=== PATIENT | female | born 1990 | race Caucasian/White ===

== ENCOUNTER 2018-09-14 23:35 | Inpatient (IN) | payer MEDICAID, SELFPAY ==
[2018-09-14 23:33] LABS: ROM Internal Control Test YES-OK TO RESULT pt. (Internal QC)
[2018-09-14 23:34] LABS: ROM Patient Test POSITIVE (Negative)
[2018-09-15] MEDS: Lactated Ringers 1,000 ML 50 ML IV ×4 (00:05→08:27)
--- NOTE | 2018-09-15 00:11 | HP.PCM_ITS ---
History Date of Admission: 09/15/18 Final ANA MARIA: 09/22/18 Final ANA MARIA Source: US <20 weeks Gestational age: 39 Weeks and 0 Days History of this : This is a 28 year-old, G [id number] at 39 weeks gestation. Presents with spontaneous rupture membranes at approximately 8 PM on 09/14/2018. Patient reports fluid is clear. ROM plus was positive on labor and delivery at time of evaluation. Smoking Status: Current every day smoker Alcohol: None Substance Use Type: Amphetamines - +UDS 01/2018, Methamphetamine - states last used about one year ago Number of Fetus(es): 1 History Past Pregnancies: Past Pregnancies Delivery Date Name GA/Weeks Outcome Route Weight Gender Labor Length Anesthesia Delivery Location Provider FOB Labs: GBS neg, rub imm, syphilis non reactive, A+, HEPB neg, HIV neg, Physical Exam General: Alert, Oriented x3 Abdomen: Soft, Non Tender, Gravid Neurological: Cranial nerves II-XII grossly intact HEALTH SERVICES DIRECTOR: Normal external genitalia Estimated gestational size: Appropriate for gestational size Presentation: Cephalic Cervix Dilation (cm): 3 Station: -2 Effacement (%): 70 Assessment/Plan This is a 28 year-old, G [id number] at 39 weeks with spontaneous rupture membranes in early labor. Admit to labor and delivery Monitor heart rate and toco Anticipate normal spontaneous vaginal delivery Augment with Pitocin if indicated May have epidural if requested for pain
[2018-09-15 00:19] LABS: Absolute Lymphocyte Count 4.69 X10^3/uL (0.83-4.51); Basophil# 0.08 X10^3/uL; Basophil% 0.5 % (0-1); Eosinophil# 0.26 X10^3/uL; Eosinophils% 1.5 % (0-5); Hematocrit 36.1 % (37-47); Hemoglobin 12.4 g/dL (12.0-15.0); Lymphocyte # 4.69 X10^3/ul (4.0); Lymphocyte % 26.6 % (19-41); Mean Corp Hgb Conc 34.3 g/dL (32-36); Mean Corpuscular Hgb 32.3 pg (27.0-32.0); Mean Platelet Vol. 12.5 fl (6.2-12.0); Monocyte# 1.29 X10^3/uL; Monocyte% 7.3 % (0-10); NRBC Flagged by Analyzer 0 % (0-5); Neutrophil # 11.01 X10^3/uL (2.7-7.7); Neutrophil % 62.5 % (47-70); Platelet Count 172 K/mm3 (150-450); RBC Distribution Width CV 12.3 % (11.6-14.6); RBC Distribution Width SD 42.4 fl (35.1-43.9); Red Blood Count 3.84 M/mm3 (4.2-5.4); White Blood Count 17.6 K/mm3 (4.4-11.0)
[2018-09-15 00:21] VITALS: BMI 34.4
[2018-09-15 02:01] LABS: Amphetamine Urine VISTA NEGATIVE (<1000 ng/mL); Barbiturate Urine VISTA NEGATIVE (< 200 ng/mL); Benzodiazepine Urine VISTA NEGATIVE (< 200 ng/mL); Cocaine Urine VISTA NEGATIVE (< 300 ng/mL); Ecstacy Urine VISTA NEGATIVE (< 500 ng/mL); Methadone Urine VISTA NEGATIVE (< 300 ng/mL); PCP Urine VISTA NEGATIVE (< 25 ng/mL); THC Urine VISTA NEGATIVE (< 50 ng/mL); Vista UDS pH Range 6
[2018-09-15] MEDS: fentaNYL-bupivacaine (epidural) 100 ML BAG EPIDURAL ×2 (04:35→08:57)
[2018-09-15] MEDS: Oxytocin 30 units/NS 500 ml 30 UNITS/500 ML IV.SOLN IV (06:29)
[2018-09-15] MEDS: Oxytocin 30 units/NS 500 ml 30 UNITS/500 ML IV.SOLN 334 UNITS IV (09:25)
--- NOTE | 2018-09-15 09:31 | PCM.OPRPT ---
Vaginal Delivery Maternal Presentation: Active Labor, Spontaneous Rupture of Membranes Amniotic Membrane Rupture Type: Spontaneous at home Amniotic Fluid Description: Clear Final ANAM ARIA: 09/22/18 Gestational age: 39 Weeks and 0 Days Date of Procedure: 09/15/18 Pre-Operative Diagnosis: Gestation, spontaneous rupture of membranes, labor Post-Operative Diagnosis: Same, live male Surgery/ Procedure Performed: Spontaneous Vaginal Delivery Type of Anesthesia: Epidural Description of Procedure: of a live male born without complication. Good maternal effort. Delayed cord clamping performed. was vigorous at time of delivery. Presentation: Vertex Placental Delivery Description: Spontaneous Placenta Disposition: [facility] Cord Vessel Description: 3 Vessels Cord Entanglement: None Drain: Calvillo to straight drain Estimated Blood Loss: 250 A gender: Male (1 minute): 9 (5 minute): 9 Episiotomy Description: None Laceration: None Medications given after delivery: IV Pitocin Complications: None
[2018-09-15] MEDS: Oxytocin 30 units/NS 500 ml 30 UNITS/500 ML IV.SOLN 167 UNITS IV (09:55)
[2018-09-15] MEDS: Ondansetron 4 MG/2 ML Vial IV (10:02)
[2018-09-15] MEDS: Acetaminophen 500 MG Tablet 1000 MG PO ×2 (13:46→21:45)
--- NOTE | 2018-09-15 13:47 | CASEMGMT ---
SW received referral due to history of drug use and [facility] Services involvement. As per physician, MOB has an open case with [facility] due to drug possession in June, however the case is to be closed soon as per MOB. Baby was just born today, SW will follow up w/MOB tomorrow. SW called [facility] in [facility], spoke w/Karlee and confirmed MOB has an open case, pt's case operator is Miracle Hankins([phone]). [facility] is to call this SW back to let this SW know if they need to see MOB while here. SW will call Miracle tomorrow once SW sees MOB. LAURI Osorio
[2018-09-15 13:48] VITALS: BP 117/70; PULSE 73; RESP 18; TEMP 36.7
[2018-09-15 17:14] VITALS: BP 107/57; PULSE 54; RESP 18; TEMP 36.3
[2018-09-15] MEDS: Ibuprofen 600 MG Tablet PO (17:39)
[2018-09-15 19:49] VITALS: BP 124/66; PULSE 62; RESP 18; TEMP 36.6
[2018-09-16] VITALS: BP 86/47; PULSE 48; RESP 20; TEMP 36.2
[2018-09-16 04:49] VITALS: BP 93/41; PULSE 45; RESP 16; TEMP 36.2
--- NOTE | 2018-09-16 07:15 | DCINST_ITS ---
Discharge Diet: No Restrictions Discharge Activity: Return to Normal Activity, May not drive while taking narcotic pain medications., May Shower May resume sexual activity in: 4-6 weeks Additional Activity Instructions:: Nothing in the vagina for 4-6 weeks. You may return to work/school in 6 weeks. Call your doctor if your incision/area has: Continuous Slow Oozing, Sudden Increased Bleeding, Increased Pain/ Swelling, Increased Redness, Foul Smelling Discharge Additional Instructions: If you experience any of the following, contact your healthcare provider. * Bleeding that soaks a pad every hour for 2 hours * Fever 100.4 or higher * Unrelieved incision or abdominal pain * Swelling, redness, discharge or bleeding from your incision or episiotomy site * Your incision begins to separate * Problems urinating (including inability to urinate or burning while urinating). * Visual changes * Severe headache * Flu-like symptoms * Pain or redness in one of both of your breasts * Pain, warmth, tenderness or swelling in your legs, especially the calf area * Frequent nausea and vomiting * Symptoms of depression or anxiety If you experience any of the following, call 911 or go to the nearest Emergency Room. * Chest pain * Problems breathing * Seizure activity * Partial or complete paralysis of a body part, slurred speech, weakness or drooping of the face, or a sudden inability to walk or hold your balance Allergies/Adverse Reactions: Allergies No Known Allergies Allergy (Verified 09/15/18 01:38) Medications to take at Discharge Pnv No.95/Ferrous Fum/Folic AC [ Formula Tablet] 1 tab PO DAILY 09/15/18 Ibuprofen [Motrin] 600 mg PO Q6H PRN #60 tab 09/16/18 The following prescriptions were given: Ibuprofen [Motrin] 600 mg PO Q6H PRN #60 tab PRN Reason: Pain Transmission Status: [id number] Please Follow Up With: Angelika Garcia MD - [phone] When: Call to make an appointment in our office in 1-2 in 6 weeks or as needed. Primary Care Physician: ZACH CISNEROS [Other] Test Results: Test results from this visit will be discussed in further detail at your follow- up appointment, if applicable.
--- NOTE | 2018-09-16 07:15 | PCM.DCVAG ---
Discharge Diet: No Restrictions Discharge Activity: Return to Normal Activity, May not drive while taking narcotic pain medications., May Shower May resume sexual activity in: 4-6 weeks Additional Activity Instructions:: Nothing in the vagina for 4-6 weeks. You may return to work/school in 6 weeks. Call your doctor if your incision/area has: Continuous Slow Oozing, Sudden Increased Bleeding, Increased Pain/ Swelling, Increased Redness, Foul Smelling Discharge Additional Instructions: If you experience any of the following, contact your healthcare provider. Bleeding that soaks a pad every hour for 2 hours Fever 100.4 or higher Unrelieved incision or abdominal pain Swelling, redness, discharge or bleeding from your incision or episiotomy site Your incision begins to separate Problems urinating (including inability to urinate or burning while urinating). Visual changes Severe headache Flu-like symptoms Pain or redness in one of both of your breasts Pain, warmth, tenderness or swelling in your legs, especially the calf area Frequent nausea and vomiting Symptoms of depression or anxiety If you experience any of the following, call 911 or go to the nearest Emergency Room. Chest pain Problems breathing Seizure activity Partial or complete paralysis of a body part, slurred speech, weakness or drooping of the face, or a sudden inability to walk or hold your balance Allergies/Adverse Reactions: Allergies No Known Allergies Allergy (Verified 09/15/18 01:38) Medications to take at Discharge Pnv No.95/Ferrous Fum/Folic AC [ Formula Tablet] 1 tab PO DAILY 09/15/18 Ibuprofen [Motrin] 600 mg PO Q6H PRN #60 tab 09/16/18 The following prescriptions were given: Ibuprofen [Motrin] 600 mg PO Q6H PRN #60 tab PRN Reason: Pain Transmission Status: [id number] Please Follow Up With: Angelika Garcia MD - [phone] When: Call to make an appointment in our office in 1-2 in 6 weeks or as needed. Primary Care Physician: ZACH CISNEROS [Other] Test Results: Test results from this visit will be discussed in further detail at your follow-up appointment, if applicable.
--- NOTE | 2018-09-16 07:16 | PCM.PN.OB ---
Subjective: Pain well controlled. Average lochia. - Physical Exam General: Alert, Cooperative, No apparent distress Vital Signs Temp Pulse Resp BP 97.1 F L 45 L 16 93/41 L 09/16/18 04:49 09/16/18 04:49 09/16/18 04:49 09/16/18 04:49 Oxygen Delivery Method Room Air Weight: 85.5 kg Body Mass Index (BMI) 34.4 Intake and Output for Last 24 Hours 09/14/18 09/15/18 09/16/18 23:59 23:59 23:59 Output Total 1300 / 1300 Balance -1300 / -1300 Medical Necessity - Tobacco Use Smoking Status: Light Smoker (<10/day) Assessment/Plan day #1 status post vaginal delivery. Infant is bottlefeeding and doing well. Patient is doing well. Likely home later today with routine instructions.
[2018-09-16 09:20] VITALS: BP 103/76; PULSE 83; RESP 16; TEMP 36.6
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
[2018-09-16] MEDS: Ibuprofen 600 MG Tablet PO ×2 (12:04→21:33)
[2018-09-16 14:00] VITALS: BP 103/67; PULSE 80; RESP 16; TEMP 36.2
[2018-09-16 20:00] VITALS: BP 92/60; PULSE 52; RESP 17; TEMP 36.1
[2018-09-17 01:20] VITALS: BP 96/50; PULSE 52; RESP 17; TEMP 36.1
[2018-09-17 07:24] VITALS: BP 123/70; PULSE 80; RESP 17; TEMP 36.7; O2SAT 99
[2018-09-17 08:20] VITALS: BP 98/56; PULSE 79; RESP 17; TEMP 36.7; O2SAT 99
--- NOTE | 2018-09-17 09:36 | PCM.PN.OB ---
Subjective: No complaints - Physical Exam General: Alert, Oriented x3 Abdomen: Soft, Non Tender, Non-Distended - ff mid & below umb Extremities: No Calf Tenderness Vital Signs Temp Pulse Resp BP Pulse Ox 98.0 F 79 17 98/56 L 99 09/17/18 08:20 09/17/18 08:20 09/17/18 08:20 09/17/18 08:20 09/17/18 08:20 Oxygen Delivery Method Room Air Weight: 188 lb 7.924 oz Body Mass Index (BMI) 34.4 Intake and Output for Last 24 Hours 09/15/18 09/16/18 09/17/18 23:59 23:59 23:59 Output Total 1899 / 1899 Balance -1899 / -1899 Medical Necessity - Tobacco Use Smoking Status: Light Smoker (<10/day) Assessment/Plan PPD#2 D/c home
[2018-09-17 13:40] VITALS: BP 121/78; PULSE 70; RESP 17; TEMP 36.7; O2SAT 98
--- NOTE | 2018-09-21 16:51 | NURSING ---
Doing well , working with wic to try to get a pump. doing combination of breast feeding and bottles. She really love Linda Nelson and Shanthi on days.
== END 2018-09-17 13:40 | disposition home or self-care (01) | DRG 560 ==
LOC: WPOUT 23:42
PROVIDERS: Admitting Provider Obstetrics & Gynecology; Referring Provider Obstetrics & Gynecology; Visit Provider Obstetrics & Gynecology
DX: O99.334 Smoking (tobacco) complicating childbirth (principal); F17.200 Nicotine dependence, unspecified, uncomplicated; Z37.0 Single live birth; Z3A.39 39 weeks gestation of pregnancy
CPT/HCPCS: 59025; 59050; 80307; 84112; 85025; 86850; 86900; 99218; J7120; G0378; J2405

== ENCOUNTER 2018-10-20 09:40 | Day surgery (SDC) | payer MEDICAID, SELFPAY ==
--- NOTE | 2018-10-12 08:11 | HP.PCM_ITS ---
History and Physical Date of Admission: 10/20/18 Angelika Britt Physician DRIVER'S LICENSE REVIEWING OFFICER H&P Signed Encounter Date: 10/11/2018 Expand All Collapse All Hide copied text Elliot for details Tori Avila is a 28 year old female who presents for sterilization consult. Patient has 3 children all born . Patient would like to proceed with a laparoscopic bilateral salpingectomy. Patient does not desire any future fertility. Patient would also like her Pap collected at that time she declines a pelvic exam right now due to previous trauma. She denies any chest pain, shortness of breath, dizziness. ? PAST?MEDICAL?HISTORY PAST MEDICAL HISTORY Diagnosis Date ? Anxiety ? ? Gestational diabetes mellitus, antepartum 2015 ? Obesity ? ? PAST?SURGICAL?HISTORY PAST SURGICAL HISTORY Procedure Laterality Date ? TONSILLECTOMY HX ? age 4 ? FAMILY?HISTORY FAMILY HISTORY Problem Relation Age of Onset ? No Known Problems Mother ? ? No Known Problems Father ? ? Heart Maternal Grandmother ? ? Pacemaker ? Breast Cancer Sister ? ? SOCIAL?HISTORY Social History Socioeconomic History Marital status: Single Spouse name: Not on file Number of children: 2 Years of education: Not on file Highest education level: Not on file Occupational History Occupation: Unemployed Social Needs Financial resource strain: Not on file Food insecurity: Worry: Not on file Inability: Not on file Transportation needs: Medical: Not on file Non-medical: Not on file Tobacco Use Smoking status: Current Every Day Smoker Packs/day: 0.50 Years: 10.00 Pack years: 5 Types: Cigarettes Smokeless tobacco: Never Used Substance and Sexual Activity Alcohol use: No Drug use: No Sexual activity: Yes control/protection: None Lifestyle Physical activity: Days per week: Not on file Minutes per session: Not on file Stress: Not on file Relationships Social connections: Talks on phone: Not on file Gets together: Not on file Attends jain service: Not on file Active member of club or organization: Not on file Attends meetings of clubs or organizations: Not on file Relationship status: Not on file Intimate partner violence: Fear of current or ex partner: Not on file Emotionally abused: Not on file Physically abused: Not on file Forced sexual activity: Not on file Other Topics Concerns: Not on file Social History Narrative Not on file ? CURRENT?MEDICATIONS ? Current Outpatient Medications: Kiympygx-Pf-Cop-Fe-FA ( VITAMIN) tab Take 1 tablet by mouth once daily. ibuprofen (MOTRIN) 600 mg tablet Take 1 tablet by mouth every 6 hours as needed. FOR PAIN. simethicone, chewable (MYLICON) 80 mg chewable tablet Take 1 tablet by mouth every 6 hours as needed. fluconazole (DIFLUCAN) 200 mg tablet Take two tablets PO on day one then one tablet daily for 14 days omeprazole (PRILOSEC) 20 mg capsule TAKE 1 CAPSULE BY MOUTH EVERY DAY (Patient not taking: Reported on 10/11/2018) ? No current facility-administered medications for this visit. Allergies As of Date: 10/11/2018 (No Known Allergies) Fully Assessed 10/11/2018 ? ? REVIEW OF SYSTEMS Abdomen: No abdominal pain, nausea, vomiting, diarrhea, or constipation. Bladder: No dysuria, gross hematuria, urinary frequency, urinary urgency, or incontinence. Breast: No breast lumps, nipple d/c, overlying skin changes, redness or skin retraction. Expanded ROS: GENERAL: Negative for malaise, fever Allergies and current medication updated:Yes ? EXAM: BP 106/72 Wt 171 lb (77.6kg) ? GENERAL: pleasant, female in no apparent distress HEENT: Normocephalic, atraumatic, mucus membranes moist and no lesions NECK: Supple, full range of motion, no adenopathy and thyroid normal DERMATOLOGY: Normal, without lesions, non-icteric and non-hirsute BREAST: soft, non-tender, symmetric, no dominant mass, normal nipple-areolar complex, no lymphadenopathy and no nipple discharge ABDOMEN: soft, non-tender and no masses PELVIC: declined BIMANUAL: declined NEURO: alert and oriented x3,exam grossly non-focal EXTREMITIES: normal ? ASSESSMENT AND PLAN: Encounter Diagnosis ? ? ICD-10-CM ? 1. Encounter for screening for malignant neoplasm of cervix Z12.4 CANCELED: PAP FLUID CERVICAL SCREENING 2. care and examination Z39.2 ? ? 3. Pt has been counseled on risks/benefits and alternatives of surgery including but not limited to anesthesia, bleeding, infection, injury to pelvic structures including bowel, bladder, ureters and vessels. Pt wishes to proceed with surgery at this time. 4. Pt is scheduled for laparoscopic bilateral salpingectomy with Pap collection to be performed on October 20, 2018 [facility]. All preoperative instructions are reviewed. Postoperative pain medication was given. ? Angelika Neyhart-Britt, MD ?3:49 PM Office Visit on 10/11/2018
[2018-10-20] VITALS (8 sets, daily range): BP systolic 99–106; BP diastolic 61–77; PULSE 50–67; RESP 14–16; TEMP 36.6–36.8; O2SAT 97–100; BMI 31.5
--- NOTE | 2018-10-20 | FALS_PTH ---
PATIENT: AMANDA BOLAÑOS [place]: [facility] U#:[id number] AGE/SX: 28/ ROOM: RE10/20/[address]: Dr. Angelika Garcia, MDDOB: 1990 BED: DIS: 10/20/2018 SPEC #: [id number] RECD: 10/20/18 14:11 STATUS: PRATEEK CARLINE #: [id number] LUZMARIA: 10/20/18 00:[address]: Angelika Garcia DEPT: SURGICAL PATHOLOGY RECD BY: Alton Phan ENTERED: 10/20/18 14:11 SP TYPE: FALL TUBES OTHR DR: Out of [facility] Doctor Tissues: Fallopian tube Procedures: Surgery Specimen Level II HEADER OPERATION: Laparoscopic, salpingectomy, Pap test PRE-OP DIAGNOSIS: Desires sterilization, screening for malignant neoplasm of cervix TISSUE SUBMITTED: Bilateral fallopian tubes MICROSCOPIC DIAGNOSIS Bilateral fallopian tubes, salpingectomy: Bilateral fallopian tubes including fimbrial ends, no pathologic diagnosis. ALESIA:trina 10/21/18 MICROSCOPIC DESCRIPTION Slides are reviewed. GROSS DESCRIPTION Received is one container labeled with the patient's name and designated bilateral fallopian tubes. The specimen consists of bilateral fallopian tubes including fimbrial ends with the right identified with a suture. The fallopian tubes measure in average 4.5 cm in length and 0.5 cm in average diameter. Bellows Assembler sections are submitted in two cassettes as follows: 1 - right fallopian tube, 2 - left fallopian tube. /AM:trina 10/20/18 TC: 4 CPT: 50237 x2
[2018-10-20 10:02] LABS: Internal QC Validated? YES +Cl - CLEAR BKGD; Pregnancy, Urine Negative Negative
[2018-10-20 10:03] LABS: Hematocrit 41.8 % (37-47); Hemoglobin 13.3 g/dL (12.0-15.0); Mean Corp Hgb Conc 31.8 g/dL (32-36); Mean Corpuscular Hgb 31.1 pg (27.0-32.0); Mean Corpuscular Volume 97.7 fL (81-99); Mean Platelet Vol. 10.3 fl (6.2-12.0); Platelet Count 236 K/mm3 (150-450); RBC Distribution Width CV 12.4 % (11.6-14.6); RBC Distribution Width SD 44.5 fl (35.1-43.9); Red Blood Count 4.28 M/mm3 (4.2-5.4); White Blood Count 8.8 K/mm3 (4.4-11.0)
[2018-10-20] MEDS: Lactated Ringers 1,000 ML 150 ML IV ×2 (10:35→11:31)
--- NOTE | 2018-10-20 12:54 | DCINST_ITS ---
Discharge Diet: No Restrictions, - - Increase fluid intake for 48 hours. Discharge Activity: Return to Normal Activity, May Drive - when you are no longer taking narcotic pain medications., May Shower, May Take a Tub Bath - in 7 days., - - Ambulate often the next week after surgery. Lifting Restrictions: 25 Additional Activity Instructions:: Nothing in the vagina for the next 5 days. Call your doctor if your incision/area has: Continuous Slow Oozing, Sudden Increased Bleeding, Increased Pain/ Swelling, Increased Redness, Foul Smelling Discharge, Swelling at the incision site Call your doctor if you observe: Fever of 101 or Higher, Using more than one pad per hour, Uncontrolled pain Cleanse incision/area with: - - You have skin glue on your incisions do not pick it off. You may shower let the soap and water run over it dab dry. Allergies/Adverse Reactions: Allergies No Known Allergies Allergy (Verified 10/13/18 13:05) Medications to take at Discharge Ibuprofen [Motrin] 600 mg PO Q6H PRN #60 tab 09/16/18 Fluconazole [Diflucan] 200 mg PO DAILY 10/13/18 Primary Care Physician: ZACH CISNEROS [Other] Test Results: Test results from this visit will be discussed in further detail at your follow- up appointment, if applicable. Please Follow Up With: Angelika Garcia MD When: as scheduled
--- NOTE | 2018-10-20 12:55 | OP.PCM_ITS ---
Report of Operation Date of Procedure: 10/20/18 Pre-Operative Diagnosis: Screening for malignant neoplasm of the cervix, desires sterilization Post-Operative Diagnosis: same Surgery/Procedure Performed:: PAP collection, Laparoscopic bilateral salpingectomy Description of Surgical Findings:: Normal ovaries, both fimbriated ends of tubes appear to be clubbed. clinic licensed practical nurse: Franklin Galaviz clinic licensed practical nurse: MARLYN LARRY Type of Anesthesia:: General Special Medications: 0.5% marcaine Specimen's removed: Biltaeral fallopian tubes Drains: none Estimated Blood Loss (mL): 5 Fluids Replaced: 1000 Description of Procedure: After informed consent was obtained patient was taken to the operating room she was placed in supine position she was given anesthesia. She was then placed in the yellow [facility] stirrups and she was prepped and draped in normal sterile fashion. Bladder was drained prior to the start of procedure approximately 100cc of clear yellow urine was expelled. At this time attention was turned to the vaginal portion where weighted speculum placed at posterior fornix vagina- pap collected- single-tooth tenaculum was used to gently grasp the internal the cervix. uterus was gently sounded to approximately 8cm- however perforation anticipated. Uterine manipulator was placed without difficulty. Legs then placed in parallel with the abdomen the tenaculum and the weighted speculum were removed. 2 towel clamps were placed in umbilicus. After Marcaine was injected in umbilicus a small incision was made and a 5 mm trocar was placed under direct visualization. CO2 gas was used to insufflate the intra-abdominal cavity. Upon inspection no gross abnormalities uterus- tiny perforation noted anterior, no active bleeding tubes with clubbing at fimbria and ovaries appeared to be normal. At this time then the LLQ aned RLQ port were placed again Marcaine was injected small incision was made a knife and the 5 mm trocar was placed. At this time then tubes were traced back to the fimbriated ends. Ligasure was used to coagulate and ligate along mesosalpynx bilaterally until tubes removed completely. Good hemostasis was appreciated. At this time procedure was deemed complete successful. The gas was desufflated on from the intra-abdominal cavity. The trochars were removed. Skin was closed using 4-0 Monocryl in a subcutaneous fashion. Dermabond glue was placed. Instrument lap and needle counts were correct ?2. The uterine manipulator was removed. Vaginal sweep was performed it was negative. There were no complications anticipated normal postoperative course for this patient. Grafts/Implants Used: none - Complications none - Admit VTE Documentation VTE Present on Admission: Yes VTE Mechan Device Prophylaxis: SCD's VTE Pharm Prophylaxis ordered?: No
[2018-10-27 12:59] LABS: HPV Reflexed? NOT INDICATED
== END 2018-10-20 14:53 | disposition home or self-care (01) ==
LOC: SDC 09:42 → AC 09:44
PROVIDERS: Referring Provider Obstetrics & Gynecology; Visit Provider Obstetrics & Gynecology
PROC: (CPT 58661; principal; 2018-10-20 11:05)
DX: Z30.2 Encounter for sterilization (principal); F17.210 Nicotine dependence, cigarettes, uncomplicated; Z95.0 Presence of cardiac pacemaker; Z80.3 Family history of malignant neoplasm of breast; Z79.899 Other long term (current) drug therapy
CPT/HCPCS: 58661; 36415; 81025; 85027; 88175; 88302; J7120; G0145; J2405

== ENCOUNTER 2020-08-09 00:04 | Emergency (ER) | payer MEDICAID, SELFPAY ==
[2018-10-20 10:21] VITALS: BMI 31.5
[2020-08-09 00:05] VITALS: BP 143/97; PULSE 76; RESP 16; TEMP 36; O2SAT 98; BMI 39.0
--- NOTE | 2020-08-09 00:21 | EDS_ITS ---
HPI History of Present Illness Chief Complaint: Abd Pain Narrative Narrative: Patient presenting with epigastric pain. She states she thinks she had a bug about a week ago and she vomited once and had diarrhea which resolved. She has this intermittent epigastric pain that comes and goes. It does not appear to be associated with food. She states when she gets stressed out though it hurts worse. She has no history of stomach ulcers that she knows of. She is not had fever. She denies nausea and vomiting currently. She has no diarrhea or constipation. Other than pain in epigastric region she feels well. She states that she drinks occasionally but is not an everyday drinker. She has no history of pancreatitis. [facility] Medical History Asthma PTSD (post-traumatic stress disorder) Home Medications albuterol sulfate [ProAir HFA] 1 inh INHALATION Q6H PRN #8.5 g 08/09/20 [Rx Last Taken Unknown] amoxicillin-pot clavulanate [Augmentin] 1 tab PO BID #20 tab 08/09/20 [Rx Last Taken Unknown] omeprazole 20 mg PO DAILY #30 capsule 08/09/20 [Rx Last Taken Unknown] sertraline 125 mg PO DAILY 08/09/20 [History Last Taken Unknown] Allergy/AdvReac Type Severity Reaction Status Date / Time No Known Allergies Allergy Verified 08/09/20 00:10 Social History Smoking Status: Current every day smoker tobacco type: cigarettes ROS ROS ED Constitutional Constitutional ED: Denies chills or fever(s) Eyes Eyes: Denies blurry vision or change in vision ENT ENT ED: Denies ear pain, rhinorrhea or sore throat Cardiovascular Cardiovascular: Denies chest pain or palpitations Respiratory/Chest Respiratory/Chest: Denies cough or dyspnea Gastrointestinal Gastrointestinal: Reports abdominal pain, diarrhea and nausea Musculoskeletal Musculoskeletal: Denies arthralgias or myalgias Integumentary Denies abscess or rash Neurologic Neurologic: Denies headache(s) or weakness Psychiatric Psychiatric: Denies anxiety or depression Endocrine Endocrinology: Denies polydipsia or polyuria EXAM Physical Exam Const Vital Signs: 08/09/20 00:05 Temperature 96.8 F L Temperature Source Temporal Pulse Rate 76 Respiratory Rate 16 Blood Pressure 143/97 H Blood Pressure Mean 112 Pulse Ox 98 Oxygen Delivery Method Room Air Positive well nourished General Appearance ED: NAD HEENT Reports moist mucous membranes Negative for trauma Teeth and Gingiva: caries, poor dentition and teeth discoloration Throat: posterior oropharynx normal and other Other Details: Tooth #4 tooth #5 have some white dental material placed over the area of pain. There is percussion tenderness here. The gingiva is normal. Eyes PERRL and EOMs intact bilaterally General Eye ED: Negative for scleral icterus Resp normal respiratory effort and clear to auscultation bilaterally Cardio regular rate and regular rhythm GI non-distended GI Narrative: Mild epigastric tenderness Palpation: soft Extremity normal to inspection General Extremety ED: Negative for edema General Extremity: Negative for edema Neuro oriented x3 and CN's II-XII intact bilaterally Sensorium / Orientation: alert Psych mental status grossly normal Skin no rashes or lesions noted and no wounds MDM MDM MDM Narrative Medical decision making narrative: Patient is seen and evaluated for epigastric pain. I did give the patient morphine and Zofran and checked lab work. She does not have a leukocytosis. Her H&H are stable. Renal function and davis ctrolytes are normal. LFTs are normal. Lipase is negative. Urinalysis is contaminated and they will not treat her for UTI given that she has no symptoms. Patient then had complaint of dental pain in the right upper teeth #4 #5. I cannot actually visualize him fully given that she has put some sort of cement on them however there is some percussion tenderness here. She requests an antibiotic. She does have multiple dental caries and she has a dental appointment upcoming. I will start her on Augmentin for this. Patient also has complaint that she has no primary care physician and requests an albuterol inhaler. I did provide a prescription for this. For her initial complaint I will start her on omeprazole. She is counseled on foods to avoid. She is given return precautions. Impression: 1. Epigastric pain 2. Dental infection 3. Medication refill Lab Data Labs: Laboratory Results - last 24 hr 08/09/20 08/09/20 08/09/20 00:20 00:20 00:28 WBC 10.7 RBC 3.86 L Hgb 12.4 Hct 38.0 MCV 98.4 MCH 32.1 H MCHC 32.6 RDW Std Deviation 46.5 H RDW Coeff of Daniela 13.0 Plt Count 310 MPV 10.2 Immature Gran % (Auto) 0.800 Neut % (Auto) 44.1 L Lymph % (Auto) 40.3 Blount % (Auto) 8.3 Eos % (Auto) 5.9 H Baso % (Auto) 0.6 Absolute Neuts (auto) 4.7 Absolute Lymphs (auto) 4.29 Nucleated RBC % 0 Sodium 139 Potassium 3.9 Chloride 104 Carbon Dioxide 31.0 Anion Gap 4 L BUN 16 Creatinine 0.68 Estim Creat Clear Calc 94.81 Est GFR (MDRD) Af Amer 131 Est GFR (MDRD) Non-Af 108 BUN/Creatinine Ratio 23.7 H Glucose 90 Calcium 8.7 Total Bilirubin 0.20 AST 18 ALT 23 Alkaline Phosphatase 52 Total Protein 7.0 Albumin 3.4 Globulin 3.6 Albumin/Globulin Ratio 0.9 Lipase 181 Urine Color Yellow Urine Clarity Clear Urine pH 7.0 Ur Specific [place] 1.010 Urine Protein Negative Urine Glucose (UA) Normal Urine Ketones Negative Urine Occult Blood Negative Urine Nitrite Negative Urine Bilirubin Negative Urine Urobilinogen Normal Ur Leukocyte Esterase 100 H Urine RBC 0 SEEN Urine WBC 5-10 SEEN Ur Squamous Epith Cells 10-25 SEEN Amorphous Sediment RARE Urine Bacteria 2+ Urine Mucus 0 SEEN Discharge Plan Triage Chief Complaint: Abd Pain ED Provider: Darren Whiteside Dx/Rx/DC Orders Instructions: ED Dental Cavity, ED PEPTIC ULCER vs GASTRITIS Prescriptions: New omeprazole 20 mg capsule,delayed release(DR/EC) 20 mg PO DAILY Qty: 30 RF: 0 albuterol sulfate [ProAir HFA] 90 mcg/actuation HFA aerosol inhaler 1 inh inhalation Q6H PRN (Reason: shortness of breath or wheezing) Qty: 8.5 RF: 0 amoxicillin-pot clavulanate [Augmentin] 875-125 mg tablet 1 tab PO BID Qty: 20 RF: 0 No Action sertraline 50 mg tablet 125 mg PO DAILY RF: 0 Primary Care Provider: Care Physician,No Primary Referrals: Boris Singh III, MD [STAFF PHYSICIAN] - As soon as possible Care Physician,No Primary [Primary Care Provider] - Disposition Disposition: Home, self care
[2020-08-09 00:28] LABS: Absolute Lymphocyte Count 4.29 X10^3/uL (0.83-4.51); Absolute Neutrophil Count 4.7 X10^3/uL (2.0-7.7); Basophil# 0.06 X10^3/uL; Basophil% 0.6 % (0-1); Eosinophil# 0.63 X10^3/uL; Eosinophils% 5.9 % (0-5); Hemoglobin 12.4 g/dL (12.0-15.0); Lymphocyte # 4.29 X10^3/ul (0.83-4.51); Lymphocyte % 40.3 % (19-41); Mean Corp Hgb Conc 32.6 g/dL (32-36); Mean Corpuscular Hgb 32.1 pg (27.0-32.0); Mean Corpuscular Volume 98.4 fL (81-99); Mean Platelet Vol. 10.2 fl (6.2-12.0); Monocyte# 0.88 X10^3/uL; Monocyte% 8.3 % (0-10); NRBC Flagged by Analyzer 0 % (0-5); Neutrophil % 44.1 % (47-70); Platelet Count 310 K/mm3 (150-450); RBC Distribution Width SD 46.5 fl (35.1-43.9); Red Blood Count 3.86 M/mm3 (4.2-5.4); White Blood Count 10.7 K/mm3 (4.4-11.0)
[2020-08-09] MEDS: Morphine 4 MG/ML Syringe IV (00:32)
[2020-08-09] MEDS: Ondansetron 4 MG/2 ML Vial IV (00:32)
[2020-08-09 00:33] LABS: Color, Urine Yellow (Yellow); Glucose, Dipstick Normal (Normal); Ketone-Dipstick Negative (Negative); Leukocyte Esterase-Dipstick 100 /ul (Negative); Mucous, Urine 0 SEEN /hpf (<or=2+); Nitrite-Dipstick Negative (Negative); Occult Blood-Urine Negative /ul (Negative); Protein-Dipstick Negative (Negative); Red Blood Cells-Urine 0 SEEN /hpf (0-5); Urine Bilirubin Dipstick Negative (Negative); Urine Clarity Clear (Clear); Urine Urobilinogen Normal (Normal)
[2020-08-09 00:40] LABS: Amorphous Sediment RARE; Bacteria 2+ /hpf (None Seen); Squamous Epithelial Cells - UA 10-25 SEEN /hpf (5-10); White Blood Cells 5-10 SEEN /hpf (0-5)
[2020-08-09 00:47] LABS: ALB/GLOB Ratio 0.9 RATIO (0.9-2.4); AST(SGOT) 18 U/L (15-37); Alanine Aminotransfer ALT/SGPT 23 U/L (13-56); Albumin, Serum 3.4 g/dL (3.2-5.0); Alkaline Phosphatase 52 U/L (45-117); Anion Gap 4 (5-15); BUN 16 mg/dL (7-18); BUN/Creat Ratio 23.7 RATIO (10-20); Calcium,Total 8.7 mg/dL (8.5-10.1); Chloride 104 mmol/L (98-107); Creatinine, Serum 0.68 mg/dL (0.55-1.02); EST Glomerular Filtration Rate 108 mL/min (>60); Est Glom Filt Rate - Afr Amer 131 mL/min (>60); Estimated Creatinine Clearance 94.81 ml/min; Globulin 3.6 g/dL (2.2-4.2); Glucose 90 mg/dL (74-106); Lipase 181 U/L (73-393); Potassium 3.9 mmol/L (3.5-5.1); Sodium Level 139 mmol/L (136-145)
[2020-08-09] MEDS: Mag Hydrox/Al Hydrox/Simeth 30 ML UDC PO (01:25)
[2020-08-09] MEDS: Amox/Clavulanate 875 MG Tablet PO (01:25)
== END 2020-08-09 01:30 | disposition home or self-care (01) ==
PROVIDERS: Emergency Provider Student in an Organized Health Care Education/Training Program
DX: R10.13 Epigastric pain (principal); K04.7 Periapical abscess without sinus; Z76.0 Encounter for issue of repeat prescription; F17.210 Nicotine dependence, cigarettes, uncomplicated; F43.10 Post-traumatic stress disorder, unspecified; J45.909 Unspecified asthma, uncomplicated
CPT/HCPCS: 80053; 81001; 83690; 85025; 96374; 96375; 99284; A4216; J2405

== ENCOUNTER 2020-08-16 19:39 | Emergency (ER) | payer MEDICAID, SELFPAY ==
[2020-08-16 19:40] VITALS: BP 98/67; PULSE 106; RESP 26; TEMP 36.1; O2SAT 94; BMI 34.7
--- NOTE | 2020-08-16 20:24 | EDS_ITS ---
HPI History of Present Illness Chief Complaint: Allergic Reaction Narrative Narrative: 30-year-old female presenting with allergic reaction. She put medicated patch on her left shoulder and and started to have a diffuse skin rash, abdominal pain, felt a little short of breath, and complains of nausea. She took Benadryl prior to arrival and her symptoms have improved although she still has nausea and diffuse rash. Patient states she has never had an allergy to anything else. Patient states prior to this she was otherwise healthy. [facility] Medical History Asthma PTSD (post-traumatic stress disorder) Home Medications albuterol sulfate [ProAir HFA] 1 inh INHALATION Q6H PRN #8.5 g 08/09/20 [Rx Last Taken Unknown] amoxicillin-pot clavulanate [Augmentin] 1 tab PO BID #20 tab 08/09/20 [Rx Last Taken Unknown] omeprazole 20 mg PO DAILY #30 capsule 08/09/20 [Rx Last Taken Unknown] sertraline 125 mg PO DAILY 08/09/20 [History Last Taken Unknown] epinephrine [EpiPen 2-Aric] See Rx Instructions .ROUTE .COMPLEX PRN #2 ea 08/16/20 [Rx Last Taken Unknown] Allergy/AdvReac Type Severity Reaction Status Date / Time No Known Allergies Allergy Verified 08/16/20 19:40 Social History Smoking Status: Current every day smoker tobacco type: cigarettes ROS ROS ED Constitutional Constitutional ED: Denies chills or fever(s) Eyes Eyes: Denies blurry vision or change in vision ENT ENT ED: Denies ear pain or rhinorrhea Cardiovascular Cardiovascular: Denies chest pain or palpitations Respiratory/Chest Respiratory/Chest: Reports dyspnea; Denies cough or sputum Gastrointestinal Gastrointestinal: Reports abdominal pain and nausea Genitourinary Genitourinary ED: Denies dysuria or hematuria Musculoskeletal Musculoskeletal: Denies arthralgias or myalgias Integumentary Reports rash Neurologic Neurologic: Denies headache(s), paresthesias or weakness Psychiatric Psychiatric: Denies anxiety or depression EXAM Physical Exam Const Vital Signs: 08/16/20 19:40 08/16/20 20:45 08/16/20 21:45 Temperature 96.9 F L Temperature Source Temporal Pulse Rate 106 H 96 101 H Respiratory Rate 26 H 20 H 18 Blood Pressure 98/67 117/98 H 113/85 H Blood Pressure Mean 77 104 94 Pulse Ox 94 97 98 Oxygen Delivery Method Room Air Room Air Room Air 08/16/20 22:54 Temperature Temperature Source Pulse Rate 96 Respiratory Rate 16 Blood Pressure 101/70 Blood Pressure Mean Pulse Ox 98 Oxygen Delivery Method Positive well nourished General Appearance ED: NAD HEENT Reports moist mucous membranes HEENT Narrative: Tongue is normal. No sublingual edema. No posterior oropharyngeal erythema. No stridor. Negative for trauma Eyes PERRL and EOMs intact bilaterally Resp normal respiratory effort and clear to auscultation bilaterally Cardio regular rate and regular rhythm GI normal to inspection, nondistended, normoactive bowel sounds Extremity General Extremety ED: Negative for edema or tenderness General Extremity: Negative for edema Neuro oriented x3 Sensorium / Orientation: alert Psych mental status grossly normal Skin Skin Narrative: Patient has diffuse rash over entire body. MDM MDM MDM Narrative Medical decision making narrative: Patient presenting with allergic reaction she has diffuse rash and complains of nausea. She did have shortness of breath prior to arrival but took Benadryl. Given she still nauseous I did give her epinephrine, Solu-Medrol, Pepcid to the IV. She was monitored in the ED for 3 hours and at this point patient feels well and wants to be discharged home. She is given prescription for EpiPen. Impression: 1. Anaphylaxis Discharge Plan Triage Chief Complaint: Allergic Reaction ED Provider: Darren Whiteside Dx/Rx/DC Orders Instructions: ED Anaphylaxis Prescriptions: New epinephrine [EpiPen 2-Aric] 0.3 mg/0.3 mL auto-injector See Rx Instructions .ROUTE .COMPLEX PRN (Reason: anaphylaxis) Qty: 2 RF: 0 No Action sertraline 50 mg tablet 125 mg PO DAILY RF: 0 omeprazole 20 mg capsule,delayed release(DR/EC) 20 mg PO DAILY Qty: 30 RF: 0 albuterol sulfate [ProAir HFA] 90 mcg/actuation HFA aerosol inhaler 1 inh inhalation Q6H PRN (Reason: shortness of breath or wheezing) Qty: 8.5 RF: 0 amoxicillin-pot clavulanate [Augmentin] 875-125 mg tablet 1 tab PO BID Qty: 20 RF: 0 Primary Care Provider: Care Physician,No Primary Referrals: Care Physician,No Primary [Primary Care Provider] - Disposition Disposition: Home, Self Care Discharge Date/Time: 08/16/20 22:55
[2020-08-16] MEDS: MethylPREDNISolone 125 MG/2 ML Vial IV (20:36)
[2020-08-16] MEDS: Ondansetron 4 MG/2 ML Vial IV (20:36)
[2020-08-16] MEDS: Famotidine 200 MG/20 ML MDV 20 MG in 0.9% Normal Saline (Pres. free 8 ML 300 MG IV (20:42)
[2020-08-16 20:45] VITALS: BP 117/98; PULSE 96; RESP 20; O2SAT 97
[2020-08-16 21:45] VITALS: BP 113/85; PULSE 101; RESP 18; O2SAT 98
[2020-08-16 22:54] VITALS: BP 101/70; PULSE 96; RESP 16; O2SAT 98
== END 2020-08-16 22:55 | disposition home or self-care (01) ==
PROVIDERS: Emergency Provider Student in an Organized Health Care Education/Training Program
DX: T78.2XXA Anaphylactic shock, unspecified, initial encounter (principal); J45.909 Unspecified asthma, uncomplicated; F43.10 Post-traumatic stress disorder, unspecified; F17.210 Nicotine dependence, cigarettes, uncomplicated
CPT/HCPCS: 96374; 96375; 99282; J7030; J2405; J3490

== ENCOUNTER 2020-09-19 23:26 | Emergency (ER) | payer MEDICAID, SELFPAY ==
[2020-09-19 23:27] VITALS: BP 138/92; PULSE 91; RESP 18; TEMP 36.1; O2SAT 98; BMI 32.9
--- NOTE | 2020-09-19 23:39 | ED.VIS.LOWEX ---
HPI History of Present Illness Chief Complaint: Lower Extremity Injury Informant: patient Occured/Mechanism Mechanism/Context: Yes other see comment below Onset/Context/Timing Onset: Weeks (3) Context: - (unk onset) Timing: Continuous Quality of Pain: Aching Location: R forefoot Current Severity: Moderate Maximum Severity: Moderate Worsened by: walking Relieved by: resting Associated Symptoms Associated Symptoms: Negative for Parasthesia, Weakness and Loss of Funtion Narrative Narrative: Patient states her right foot has been hurting for the past 3 weeks and feels like it has been swollen in the affected area for about the last week so she presents to have it evaluated. She states I injured it but I have no idea what I did to it. She denies any systemic symptoms. Pain is in the forefoot involving the second toe and the metatarsal area just proximal to it. [facility] Medical History Asthma PTSD (post-traumatic stress disorder) Home Medications albuterol sulfate [ProAir HFA] 1 inh INHALATION Q6H PRN #8.5 g 08/09/20 [Rx Last Taken Unknown] amoxicillin-pot clavulanate [Augmentin] 1 tab PO BID #20 tab 08/09/20 [Rx Last Taken Unknown] omeprazole 20 mg PO DAILY #30 capsule 08/09/20 [Rx Last Taken Unknown] sertraline 125 mg PO DAILY 08/09/20 [History Last Taken Unknown] epinephrine [EpiPen 2-Aric] See Rx Instructions .ROUTE .COMPLEX PRN #2 ea 08/16/20 [Rx Last Taken Unknown] Allergy/AdvReac Type Severity Reaction Status Date / Time No Known Allergies Allergy Verified 09/19/20 23:29 Social History Smoking Status: Current every day smoker tobacco type: cigarettes ROS ROS ED Constitutional Constitutional ED: Denies chills or fever(s) Musculoskeletal Musculoskeletal: Reports extremity pain; Denies neck pain Integumentary Denies Abrasions, rash or wounds Neurologic Neurologic: Denies paresthesias or weakness EXAM Physical Exam Const Vital Signs: 09/19/20 23:27 Temperature 97 F L Temperature Source Temporal Pulse Rate 91 Respiratory Rate 18 Blood Pressure 138/92 H Blood Pressure Mean 107 Pulse Ox 98 Oxygen Delivery Method Room Air Positive well nourished and well developed General Appearance ED: well developed and NAD Neck full ROM and supple Back/Spine normal ROM and normal to inspection Extremity normal to inspection, full ROM, normal capillary refill, no joint enlargement, no clubbing, cyanosis or edema and no pedal edema Extremity Narrative: Very tender in the right second MTPJ and surrounding area. No erythema or signs of an abscess/infection, nor foreign body or infection nidus. Neuro oriented x3, no focal motor deficits and no sensory deficits noted Sensorium / Orientation: alert Psych mental status grossly normal and thought process normal Skin no wounds Rashes: no rashes MDM MDM MDM Narrative Medical decision making narrative: X-rays obtained and are negative for any acute bony abnormality, 3 views of my interpretation. Differential includes neuroma, bursitis, other nonbony soft tissue pathology of the forefoot. Patient is quite tender between the distal metatarsals 2-3. Referred to podiatry for further evaluation if she continues to have problems. Advised to use anti-inflammatories in the meantime. Discharge Plan Triage Chief Complaint: Lower Extremity Injury ED Provider: Ivan Turner Dx/Rx/DC Orders Clinical Impression: Right foot pain Instructions: What Are Neuromas of the Foot?, Parts of a Foot Prescriptions: No Action sertraline 50 mg tablet 125 mg PO DAILY RF: 0 omeprazole 20 mg capsule,delayed release(DR/EC) 20 mg PO DAILY Qty: 30 RF: 0 albuterol sulfate [ProAir HFA] 90 mcg/actuation HFA aerosol inhaler 1 inh inhalation Q6H PRN (Reason: shortness of breath or wheezing) Qty: 8.5 RF: 0 amoxicillin-pot clavulanate [Augmentin] 875-125 mg tablet 1 tab PO BID Qty: 20 RF: 0 epinephrine [EpiPen 2-Aric] 0.3 mg/0.3 mL auto-injector See Rx Instructions .ROUTE .COMPLEX PRN (Reason: anaphylaxis) Qty: 2 RF: 0 Primary Care Provider: Care Physician,No Primary Referrals: Vale Duenas DPM [STAFF PHYSICIAN] - (Call for appointment as needed) Care Physician,No Primary [Primary Care Provider] - Disposition Disposition: Home, Self Care
--- NOTE | 2020-09-19 23:43 | RAD_ITS ---
EXAM: XR RIGHT FOOT COMPLETE, 3 OR MORE VIEWS : 1989 CLINICAL INDICATION: pain TECHNIQUE: Frontal, lateral and oblique views of the right foot. This report was created using [email or web address] report generation technology. COMPARISON: None. FINDINGS: BONES/JOINTS: Unremarkable. No acute fracture. No subluxation. Normal alignment. Preservation of the joint space. No sclerotic or destructive changes observed. SOFT TISSUES: Unremarkable. No soft tissue swelling or gas. No radiopaque foreign body. RAD/Foot min 3 Views IMPRESSION: Negative right foot x-rays. at 0017 Reported and signed by: César Beth MD Electronically Signed: César Beth MD at 0:17 EDT Tel , Service support ,
[2020-09-20] MEDS: Ibuprofen 600 MG Tablet PO (00:04)
== END 2020-09-20 00:08 | disposition home or self-care (01) ==
LOC: ED 09-20 00:05
PROVIDERS: Emergency Provider Emergency Medicine
DX: M79.671 Pain in right foot (principal); F17.210 Nicotine dependence, cigarettes, uncomplicated; F43.10 Post-traumatic stress disorder, unspecified; J45.909 Unspecified asthma, uncomplicated
CPT/HCPCS: 73630; 99283

== ENCOUNTER 2020-10-08 19:33 | Emergency (ER) | payer MEDICAID, SELFPAY ==
[2020-10-08 19:34] VITALS: BP 109/76; PULSE 89; RESP 16; TEMP 36.2; O2SAT 100; BMI 32.9
--- NOTE | 2020-10-08 20:06 | EDS_ITS ---
HPI History of Present Illness Chief Complaint: Dental Informant: patient Onset/Context/Timing Onset: Days (3) Context: Sudden Onset (after eating crunchy food/chips, and persistent since) Timing: Continuous Quality: ache/throb Location: right mandicular molar Current Severity: Moderate Maximum Severity: Severe Worsened by: eating Relieved by: NSAIDs Associated Symptoms Assocated Symptom - Dental: Negative for fever, jaw swelling or face swelling Narrative Narrative: Patient has had noon chronic decay of the affected tooth, she bit down on it couple days ago and it hurt, has been persistent. She denies any swelling or fevers or discharge. [facility] Medical History Asthma PTSD (post-traumatic stress disorder) Home Medications albuterol sulfate [ProAir HFA] 1 inh INHALATION Q6H PRN #8.5 g 08/09/20 [Rx Last Taken Unknown] omeprazole 20 mg PO DAILY #30 capsule 08/09/20 [Rx Last Taken Unknown] sertraline 125 mg PO DAILY 08/09/20 [History Last Taken Unknown] epinephrine [EpiPen 2-Aric] See Rx Instructions .ROUTE .COMPLEX PRN #2 ea 08/16/20 [Rx Last Taken Unknown] amoxicillin 500 mg PO TID #30 tab 10/08/20 [Rx Last Taken Unknown] Allergy/AdvReac Type Severity Reaction Status Date / Time lidocaine Allergy Anaphylaxis Verified 10/08/20 19:36 acetaminophen [From Tylenol] AdvReac Nausea Verified 10/08/20 19:36 Social History Smoking Status: Current every day smoker tobacco type: cigarettes ROS ROS ED Constitutional Constitutional ED: Denies chills or fever(s) Eyes Eyes: Denies change in vision or double vision ENT ENT ED: Reports dental pain; Denies sinus pain or throat swelling Cardiovascular Cardiovascular: Denies chest pain or palpitations Respiratory/Chest Respiratory/Chest: Denies cough or dyspnea Integumentary Denies abscess or rash Neurologic Neurologic: Denies headache(s), paresthesias or weakness EXAM Physical Exam Const Vital Signs: 10/08/20 19:34 Temperature 97.1 F L Temperature Source Temporal Pulse Rate 89 Respiratory Rate 16 Blood Pressure 109/76 Blood Pressure Mean 87 Pulse Ox 100 Oxygen Delivery Method Room Air Positive well nourished and well developed Constitutional Narrative: Smiling laughing conversive in full sentences nontoxic General Appearance ED: well developed and NAD HEENT HEENT Narrative: Tender tooth #32 which is decayed almost down to the gumline, there is a sharp edge exposed but no lacerations or injuries to her tongue, no abscess, no bleeding or obvious discharge. No trismus. No cervical lymphadenopathy. Face and Sinus: sinuses nontender Throat: posterior oropharynx normal Eyes PERRL and EOMs intact bilaterally Neck no lymphadenopathy and supple Resp normal respiratory effort Neuro oriented x3 and CN's II-XII intact bilaterally Sensorium / Orientation: alert Gait (Neuro): normal gait Psych mental status grossly normal and thought process normal Skin no rashes or lesions noted and no wounds MDM MDM MDM Narrative Medical decision making narrative: Will prescribe the patient amoxicillin as she may be getting an early infection, she knows the tooth needs to be extracted, does not have access to a dentist she states that she was given the dental r esource list as well [facility]. Discharge Plan Triage Chief Complaint: Dental ED Provider: Ivan Turner Dx/Rx/DC Orders Clinical Impression: Dental decay, Odontalgia Instructions: [place] Teeth: Removal, ED Dental Pain Prescriptions: New amoxicillin 500 MG tablet 500 mg PO TID Qty: 30 RF: 0 Continued sertraline 50 mg tablet 125 mg PO DAILY RF: 0 omeprazole 20 mg capsule,delayed release(DR/EC) 20 mg PO DAILY Qty: 30 RF: 0 albuterol sulfate [ProAir HFA] 90 mcg/actuation HFA aerosol inhaler 1 inh inhalation Q6H PRN (Reason: shortness of breath or wheezing) Qty: 8.5 RF: 0 epinephrine [EpiPen 2-Aric] 0.3 mg/0.3 mL auto-injector See Rx Instructions .ROUTE .COMPLEX PRN (Reason: anaphylaxis) Qty: 2 RF: 0 Discontinued amoxicillin-pot clavulanate [Augmentin] 875-125 mg tablet 1 tab PO BID Qty: 20 RF: 0 Primary Care Provider: Care Physician,No Primary Referrals: Gordy Villanueva DDS [STAFF PHYSICIAN] - Care Physician,No Primary [Primary Care Provider] - Dentist,Your [STAFF PHYSICIAN] - As soon as possible Disposition Disposition: Home, Self Care
[2020-10-08] MEDS: traMADol 50 MG Tablet PO (21:24)
== END 2020-10-08 20:38 | disposition home or self-care (01) ==
LOC: ED 20:15
PROVIDERS: Emergency Provider Emergency Medicine
DX: K02.9 Dental caries, unspecified (principal); K08.89 Other specified disorders of teeth and supporting structures; F17.210 Nicotine dependence, cigarettes, uncomplicated; F43.10 Post-traumatic stress disorder, unspecified; J45.909 Unspecified asthma, uncomplicated
CPT/HCPCS: 99282

== ENCOUNTER 2020-10-17 12:50 | Emergency (ER) | payer MEDICAID, SELFPAY ==
[2020-10-17 12:51] VITALS: BP 83/55; PULSE 96; RESP 22; TEMP 35.9; O2SAT 99; BMI 39.0
[2020-10-17 12:58] VITALS: BP 83/55; PULSE 99; RESP 25; O2SAT 99
--- NOTE | 2020-10-17 13:04 | EX.ED.DYSGE1 ---
HPI History of Present Illness Chief Complaint: Allergic Reaction Informant: patient Narrative Narrative: Presents sudden tingling around her lips and fingers with nausea and vomiting. Denies lip or tongue swelling. Denies trouble swallowing. States generalized redness throughout. She gave herself epinephrine at around noon today. She states nausea and vomiting with no hematemesis. Currently nauseated. She took 2 Benadryl's. Reports had a similar reaction 2 months ago seen in the ED. There is no clear etiology for this. Last time was her first occurrence. Denies changes in medications. Denies any different or abnormal foods. No changes in soaps or detergents. Has not had allergy testing in the past. History of anxiety on medications. Currently on her menstrual period. Denies cough or any urinary symptoms. Patient does report a rash on her posterior scalp 3 weeks ago noticed after dying her hair. There is been drainage. Denies fevers. Prior similar symptoms: Yes PFSH PFSH Medical History Asthma PTSD (post-traumatic stress disorder) Home Medications albuterol sulfate [ProAir HFA] 1 inh INHALATION Q6H PRN #8.5 g 08/09/20 [Rx Last Taken Unknown] omeprazole 20 mg PO DAILY #30 capsule 08/09/20 [Rx Last Taken Unknown] sertraline 125 mg PO DAILY 08/09/20 [History Last Taken Unknown] epinephrine [EpiPen 2-Aric] See Rx Instructions .ROUTE .COMPLEX PRN #2 ea 08/16/20 [Rx Last Taken Unknown] amoxicillin 500 mg PO TID #30 tab 10/08/20 [Rx Last Taken Unknown] epinephrine 0.3 mg IM PRN PRN #1 ea 10/17/20 [Rx Last Taken Unknown] famotidine [Pepcid] 20 mg PO BID #9 tab 10/17/20 [Rx Last Taken Unknown] prednisone 60 mg PO DAILY #12 tab 10/17/20 [Rx Last Taken Unknown] Allergy/AdvReac Type Severity Reaction Status Date / Time lidocaine Allergy Anaphylaxis Verified 10/08/20 19:36 acetaminophen [From Tylenol] AdvReac Nausea Verified 10/08/20 19:36 Social History Smoking Status: Current every day smoker tobacco type: cigarettes ROS ROS ED Constitutional Constitutional ED: Denies chills, fever(s) or sweats Eyes Eyes: Denies change in vision ENT ENT ED: Denies dysphagia or sore throat Cardiovascular Cardiovascular: Denies chest pain, leg edema, palpitations or racing heartbeat Respiratory/Chest Respiratory/Chest: Denies cough, dyspnea or dyspnea on exertion Gastrointestinal Gastrointestinal: Denies abdominal pain, diarrhea, nausea or vomiting Genitourinary Genitourinary ED: Denies dysuria, hematuria or urinary frequency Musculoskeletal Musculoskeletal: Denies back pain, extremity pain or neck pain Integumentary Reports rash; Denies wounds Neurologic Neurologic: Reports paresthesias; Denies headache(s) or weakness EXAM Physical Exam Const Vital Signs: 10/17/20 12:51 10/17/20 12:58 10/17/20 14:23 Temperature 96.7 F L Temperature Source Temporal Pulse Rate 96 99 80 Respiratory Rate 22 H 25 H 18 Blood Pressure 83/55 L 83/55 L 120/85 H Blood Pressure Mean 64 64 96 Pulse Ox 99 99 99 Oxygen Delivery Method Room Air Room Air Room Air Positive well nourished and well developed General Appearance ED: well developed and NAD HEENT Reports moist mucous membranes HEENT Narrative: No lip or tongue swelling, airway patent. Posterior scalp examination scattered erythema with scabbing, there is no active drainage no fluctuance. normocephalic and atraumatic Eyes PERRL, EOMs intact bilaterally and conjunctivae normal General Eye ED: Yes normal appearance of both eyes Neck no lymphadenopathy and supple General: Negative for tenderness Chest Wall Chest: Negative for tenderness Resp normal respiratory effort and normal air movement Effort and Inspection: symmetric chest movement; Negative for respiratory distress Cardio regular rate, regular rhythm and no murmurs Peripheral Pulses: pulses 2+ throughout GI normal to inspection, nondistended, normoactive bowel sounds and non-tender Palpation: Negative for guarding or rebound tenderness present Back/Spine no CVA tenderness and no thoracic nor lumbar tenderness Extremity normal to inspection General Extremety ED: Negative for edema or tenderness General Extremity: Negative for edema Neuro oriented x3 and no sensory deficits noted Sensorium / Orientation: awake and alert Skin Skin Narrative: Generalized erythema throughout her body, no urticarial lesions. MDM MDM MDM Narrative Medical decision making narrative: Patient generalized allergic reaction unclear of the source. She took Benadryl and epinephrine at home she was slight hypotensive on arrival. Fluids will be given Zofran, Solu-Medrol and Pepcid. Scalp examination concerns for chemical contact dermatitis. Patient patient monitored. 1600: Multiple reevaluation blood pressure improved erythema improved. Symptoms improved. Unclear etiology on her anaphylaxis symptoms. She will be given follow-up as an outpatient for allergy testing with Dr. Eliel Flower. She will continue Benadryl as needed. Prescription for prednisone Pepcid and refill her epinephrine pen. All questions were answered. Discharge Plan Triage Chief Complaint: Allergic Reaction ED Provider: Chema Kelly Dx/Rx/DC Orders Clinical Impression: Anaphylaxis Instructions: ED Anaphylaxis Prescriptions: New prednisone 20 mg tablet 60 mg PO DAILY Qty: 12 RF: 0 famotidine [Pepcid] 20 mg tablet 20 mg PO BID Qty: 9 RF: 0 epinephrine 0.3 mg/0.3 mL auto-injector 0.3 mg IM PRN PRN (Reason: anaphalaxis) Qty: 1 RF: 0 No Action sertraline 50 mg tablet 125 mg PO DAILY RF: 0 omeprazole 20 mg capsule,delayed release(DR/EC) 20 mg PO DAILY Qty: 30 RF: 0 albuterol sulfate [ProAir HFA] 90 mcg/actuation HFA aerosol inhaler 1 inh inhalation Q6H PRN (Reason: shortness of breath or wheezing) Qty: 8.5 RF: 0 epinephrine [EpiPen 2-Aric] 0.3 mg/0.3 mL auto-injector See Rx Instructions .ROUTE .COMPLEX PRN (Reason: anaphylaxis) Qty: 2 RF: 0 amoxicillin 500 MG tablet 500 mg PO TID Qty: 30 RF: 0 Primary Care Provider: Care Physician,No Primary Referrals: Care Physician,No Primary [Primary Care Provider] - Activity Restrictions/Additional Instructions: Dr. Damien Flower [id number] [place] [address] Call for follow up for allergy testing. Prescription sent to your pharmacy. Disposition Disposition: Home, Self Care
[2020-10-17] MEDS: MethylPREDNISolone 125 MG/2 ML Vial IV (13:29)
[2020-10-17] MEDS: Ondansetron 4 MG/2 ML Vial IV (13:29)
[2020-10-17] MEDS: Famotidine 200 MG/20 ML MDV 20 MG in 0.9% Normal Saline (Pres. free 8 ML 300 MG IV (13:29)
[2020-10-17 14:23] VITALS: BP 120/85; PULSE 80; RESP 18; O2SAT 99
[2020-10-17] MEDS: Ibuprofen 600 MG Tablet PO (14:42)
[2020-10-17 15:57] VITALS: BP 124/73; PULSE 81; RESP 16; O2SAT 100
--- NOTE | 2020-10-17 15:57 | ED.RN ---
THIS NURSE REVIEWED D/C INSTRUCTIONS WITH PT AND VISITOR. PT VERBALIZED UNDERSTANDING OF INSTRUCTIONS. IV D/C. IV CATHETER INTACT. PT TOLERATED WELL. PT DENIES FURTHER NEEDS OR QUESTIONS AT THIS TIME.
== END 2020-10-17 15:58 | disposition home or self-care (01) ==
PROVIDERS: Emergency Provider Emergency Medicine
DX: T78.40XA Allergy, unspecified, initial encounter (principal); J45.909 Unspecified asthma, uncomplicated; F41.9 Anxiety disorder, unspecified; F43.10 Post-traumatic stress disorder, unspecified; F17.210 Nicotine dependence, cigarettes, uncomplicated; Z79.52 Long term (current) use of systemic steroids
CPT/HCPCS: 96361; 96374; 96375; 99285; J7030; A4216; J2405; J3490

== ENCOUNTER 2021-05-27 20:11 | Emergency (ER) | payer MEDICAID, SELFPAY ==
[2021-05-27 20:12] VITALS: BP 133/93; PULSE 98; RESP 18; TEMP 36.4; O2SAT 100; BMI 32.9
--- NOTE | 2021-05-27 21:05 | ED.VIS.DENTA ---
HPI History of Present Illness Chief Complaint: Dental Informant: patient Onset/Context/Timing Onset: Today Context: Gradual Onset Current Severity: Moderate Maximum Severity: Moderate Narrative Narrative: Patient presents secondary to dental pain. She states that she has a tooth on the right upper surface that broke 2 years ago but became painful today. She recently broke of tooth off on the left lower surface that became painful today as well. No fever or chills. She has been trying [id number] medication without improvement. [facility] Medical History Anxiety and depression Asthma PTSD (post-traumatic stress disorder) Home Medications albuterol sulfate [ProAir HFA] 1 inh INHALATION Q6H PRN #8.5 g 08/09/20 [Rx Last Taken Unknown] omeprazole 20 mg PO DAILY #30 capsule 08/09/20 [Rx Last Taken Unknown] sertraline 125 mg PO DAILY 08/09/20 [History Last Taken Unknown] epinephrine [EpiPen 2-Aric] See Rx Instructions .ROUTE .COMPLEX PRN #2 ea 08/16/20 [Rx Last Taken Unknown] epinephrine 0.3 mg IM PRN PRN #1 ea 10/17/20 [Rx Last Taken Unknown] famotidine [Pepcid] 20 mg PO BID #9 tab 10/17/20 [Rx Last Taken Unknown] aripiprazole 10 mg PO DAILY 05/27/21 [History Last Taken Unknown] buspirone 10 mg PO DAILY 05/27/21 [History Last Taken Unknown] naproxen [Naprosyn] 500 mg PO BID PRN #20 tab 05/27/21 [Rx Last Taken Unknown] penicillin V potassium 500 mg PO 4X/DAY #40 tab 05/27/21 [Rx Last Taken Unknown] Allergy/AdvReac Type Severity Reaction Status Date / Time lidocaine Allergy Anaphylaxis Verified 05/27/21 20:12 acetaminophen [From Tylenol] AdvReac Nausea Verified 05/27/21 20:12 Social History Smoking Status: Current every day smoker tobacco type: cigarettes ROS ROS ED Constitutional Constitutional ED: Denies chills or fever(s) Eyes Eyes: Denies change in vision ENT ENT ED: Reports other Details: Dental pain ; Denies sore throat Cardiovascular Cardiovascular: Denies chest pain Respiratory/Chest Respiratory/Chest: Denies cough or dyspnea Gastrointestinal Gastrointestinal: Denies abdominal pain, nausea or vomiting Genitourinary Genitourinary ED: Denies dysuria Musculoskeletal Musculoskeletal: Denies back pain or neck pain Integumentary Denies rash Neurologic Neurologic: Denies headache(s) or weakness Allergic/Immunologic Allergic/Immunologic ED: Denies urticaria EXAM Physical Exam Const Vital Signs: 05/27/21 20:12 Temperature 97.5 F L Temperature Source Temporal Pulse Rate 98 Respiratory Rate 18 Blood Pressure 133/93 H Blood Pressure Mean 106 Pulse Ox 100 Oxygen Delivery Method Room Air Positive well nourished and well developed General Appearance ED: well developed HEENT HEENT Narrative: Right maxillary second molar is fractured on the anterior surface. Mild surrounding gum edema. Left mandibular second molar is also fractured along the anterior surface. Posterior pharynx exam is normal. Patient speaking with strong voice and tolerating secretions well. No trismus. Eyes PERRL and EOMs intact bilaterally Neck supple Chest Wall inspection of chest normal and palpation of chest normal Resp normal respiratory effort and clear to auscultation bilaterally Cardio regular rate and regular rhythm GI normal to inspection, nondistended, normoactive bowel sounds and non-tender Palpation: soft Extremity normal to inspection Neuro oriented x3 Sensorium / Orientation: alert Psych mental status grossly normal Skin no rashes or lesions noted MDM MDM Treatment and Re-Evaluation Narrative: Patient be given prescription for Naprosyn and Pen-Vee K. First dose is given here. She has a dentist to follow-up with. Discharge Plan Triage Chief Complaint: Dental ED Provider: Bailey Gibbs Dx/Rx/DC Orders Clinical Impression: Pain, dental Instructions: ED Dental Pain Prescriptions: New penicillin V potassium 500 MG tablet 500 mg PO 4X/DAY Qty: 40 RF: 0 naproxen [Naprosyn] 500 mg tablet 500 mg PO BID PRN (Reason: pain) Qty: 20 RF: 0 No Action sertraline 50 mg tablet 125 mg PO DAILY RF: 0 omeprazole 20 mg capsule,delayed release(DR/EC) 20 mg PO DAILY Qty: 30 RF: 0 albuterol sulfate [ProAir HFA] 90 mcg/actuation HFA aerosol inhaler 1 inh inhalation Q6H PRN (Reason: shortness of breath or wheezing) Qty: 8.5 RF: 0 epinephrine [EpiPen 2-Aric] 0.3 mg/0.3 mL auto-injector See Rx Instructions .ROUTE .COMPLEX PRN (Reason: anaphylaxis) Qty: 2 RF: 0 famotidine [Pepcid] 20 mg tablet 20 mg PO BID Qty: 9 RF: 0 epinephrine 0.3 mg/0.3 mL auto-injector 0.3 mg IM PRN PRN (Reason: anaphalaxis) Qty: 1 RF: 0 buspirone 10 mg tablet 10 mg PO DAILY RF: 0 aripiprazole 10 mg tablet 10 mg PO DAILY RF: 0 Primary Care Provider: Care Physician,No Primary Referrals: Care Physician,No Primary [Primary Care Provider] - Activity Restrictions/Additional Instructions: Follow-up with your dentist as planned. Disposition Disposition: Home, Self Care
[2021-05-27] MEDS: Penicillin Vk 250 MG Tablet 500 MG PO (21:17)
[2021-05-27] MEDS: Naproxen 500 MG Tablet PO (21:17)
== END 2021-05-27 21:21 | disposition home or self-care (01) ==
PROVIDERS: Emergency Provider Emergency Medicine; Visit Provider Emergency Medicine
DX: K08.89 Other specified disorders of teeth and supporting structures (principal); F17.210 Nicotine dependence, cigarettes, uncomplicated; J45.909 Unspecified asthma, uncomplicated; F32.A Depression, unspecified; F41.9 Anxiety disorder, unspecified
CPT/HCPCS: 99283

== ENCOUNTER 2021-07-07 17:54 | Emergency (ER) | payer MEDICAID, SELFPAY ==
[2021-07-07 17:55] VITALS: BP 120/95; PULSE 75; RESP 18; TEMP 37.2; O2SAT 98; BMI 40.7
== END 2021-07-07 18:45 | disposition left against medical advice (07) ==
LOC: ED 18:48
DX: T78.40XA Allergy, unspecified, initial encounter (principal)

== ENCOUNTER 2021-07-25 18:40 | Emergency (ER) | payer MEDICAID, SELFPAY ==
[2021-07-25 18:41] VITALS: BP 146/94; PULSE 70; RESP 17; TEMP 36.4; O2SAT 99; BMI 37.5
--- NOTE | 2021-07-25 19:23 | ED.VIS.LOWEX ---
HPI History of Present Illness HPI Narrative: Right knee pain Chief Complaint: Lower Extremity Injury Informant: patient Occured/Mechanism Comment: Poor informant. States she injured the knee 3 years ago Onset/Context/Timing Onset: - (Poor informant) Context: Sudden Onset Timing: Continuous Quality of Pain: Dull and Aching Location: Right knee Current Severity: Mild Maximum Severity: Severe Worsened by: Patient not able to tell me Relieved by: Nothing Associated Symptoms Associated Symptoms: Negative for Parasthesia, Weakness and Loss of Funtion Narrative Narrative: Patient is a 31-year-old woman who is a poor informant. Patient complains of right knee pain. There is no history of recent trauma. She states she injured the knee 3 years ago has had problems since. There is no history of fracture, subluxation of the patella or dislocation of the knee. She denies paresthesia, anesthesia medics. Patient becomes spastic when I touched her skin over the right patella History is limited. Tetanus Immunization: <5 years Prior similar symptoms: Yes Recent Illness/Hospitalization: No PFSH PFSH Medical History Anxiety and depression Asthma PTSD (post-traumatic stress disorder) Home Medications albuterol sulfate [ProAir HFA] 1 inh INHALATION Q6H PRN #8.5 g 08/09/20 [Rx Last Taken Unknown] omeprazole 20 mg PO DAILY #30 capsule 08/09/20 [Rx Last Taken Unknown] sertraline 125 mg PO DAILY 08/09/20 [History Last Taken Unknown] epinephrine [EpiPen 2-Aric] See Rx Instructions .ROUTE .COMPLEX PRN #2 ea 08/16/20 [Rx Last Taken Unknown] epinephrine 0.3 mg IM PRN PRN #1 ea 10/17/20 [Rx Last Taken Unknown] famotidine [Pepcid] 20 mg PO BID #9 tab 10/17/20 [Rx Last Taken Unknown] aripiprazole 10 mg PO DAILY 05/27/21 [History Last Taken Unknown] buspirone 10 mg PO DAILY 05/27/21 [History Last Taken Unknown] naproxen [Naprosyn] 500 mg PO BID PRN #20 tab 05/27/21 [Rx Last Taken Unknown] penicillin V potassium 500 mg PO 4X/DAY #40 tab 05/27/21 [Rx Last Taken Unknown] naproxen 500 mg PO BID #14 tab 07/25/21 [Rx Last Taken Unknown] Allergy/AdvReac Type Severity Reaction Status Date / Time lidocaine Allergy Anaphylaxis Verified 07/25/21 18:46 acetaminophen [From Tylenol] AdvReac Nausea Verified 07/25/21 18:46 Social History (Updated 07/25/21 @ 19:[address] Harjit Perez MD) household members: significant other Smoking Status: Current every day smoker tobacco type: cigarettes alcohol intake: never substance use type: does not use ROS ROS ED Constitutional Constitutional ED: Denies chills, fever(s), subjective, sweats or weight loss Musculoskeletal Musculoskeletal: Denies arthralgias, back pain, myalgias or neck pain Integumentary Denies Abrasions or rash Neurologic Neurologic: Denies paresthesias or weakness Hematologic/Lymphatic Hematologic/Lymphatic: Denies easy bleeding or easy bruising EXAM Physical Exam Const Vital Signs: 07/25/21 18:41 Temperature 97.6 F L Temperature Source Temporal Pulse Rate 70 Respiratory Rate 17 Blood Pressure 146/94 H Blood Pressure Mean 111 Pulse Ox 99 Oxygen Delivery Method Room Air Positive well nourished, well developed, obese and unkempt General Appearance ED: unkempt, well developed and NAD Nutritional Appearance: obese HEENT normocephalic and atraumatic Eyes PERRL Eyes Narrative: Extraocular muscles are intact. Sclera is anicteric. Neck full ROM and supple Resp normal respiratory effort Cardio regular rate and regular rhythm Back/Spine no CVA tenderness Extremity normal to inspection and full ROM Extremity Narrative: There is slight swelling the right knee compared to the left. The patellas not blottable. There is no effusion. Patient has pain out of proportion to light touch of the joint line. Varus valgus stress testing cause significant pain; however, there is no laxity. There is no fullness or palpable mass in the popliteal fossa. Twyla's test was negative. Patient complained of severe pain. Unable to perform modified Sylvia's test. DP and PT pulse are palpable. General Extremety ED: Negative for cyanosis or edema General Extremity: Negative for cyanosis or edema Neuro oriented x3 and CN's II-XII intact bilaterally Sensorium / Orientation: alert Psych Appearance: unkempt Mood & Affect: anxious Skin no wounds Lesions: no lesions Rashes: no rashes MDM MDM MDM Narrative Medical decision making narrative: X-ray was obtained to determine if there is any bony abnormality acute or chronic. This was obtained because patient is a poor informant and exam is limited Lab Data Attestation: I reviewed the patient's lab results. Lab results narrative: 4 view x-ray of the knee reveals no acute abnormality. There is no fracture, subluxation or dislocation. There is no effusion. Discharge Plan Triage Chief Complaint: Lower Extremity Injury ED Provider: Harjit Perez Dx/Rx/DC Orders Clinical Impression: Acute pain of right knee Instructions: Knee Pain Prescriptions: New naproxen 500 MG tablet 500 mg PO BID Qty: 14 RF: 0 No Action sertraline 50 mg tablet 125 mg PO DAILY RF: 0 omeprazole 20 mg capsule,delayed release(DR/EC) 20 mg PO DAILY Qty: 30 RF: 0 albuterol sulfate [ProAir HFA] 90 mcg/actuation HFA aerosol inhaler 1 inh inhalation Q6H PRN (Reason: shortness of breath or wheezing) Qty: 8.5 RF: 0 epinephrine [EpiPen 2-Aric] 0.3 mg/0.3 mL auto-injector See Rx Instructions .ROUTE .COMPLEX PRN (Reason: anaphylaxis) Qty: 2 RF: 0 famotidine [Pepcid] 20 mg tablet 20 mg PO BID Qty: 9 RF: 0 epinephrine 0.3 mg/0.3 mL auto-injector 0.3 mg IM PRN PRN (Reason: anaphalaxis) Qty: 1 RF: 0 buspirone 10 mg tablet 10 mg PO DAILY RF: 0 aripiprazole 10 mg tablet 10 mg PO DAILY RF: 0 penicillin V potassium 500 MG tablet 500 mg PO 4X/DAY Qty: 40 RF: 0 naproxen [Naprosyn] 500 mg tablet 500 mg PO BID PRN (Reason: pain) Qty: 20 RF: 0 Primary Care Provider: Care Physician,No Primary Referrals: Care Physician,No Primary [Primary Care Provider] - Doctor,Your [STAFF PHYSICIAN] - 3-5 Days if not improving Activity Restrictions/Additional Instructions: 1. Apply ice 6-8 times a day 2. Take medication as prescribed. 3. The name of your physician is low K did on your insurance card. If there is no improvement follow-up with your physician in 3 to 5 days Disposition Disposition: Home, Self Care
--- NOTE | 2021-07-25 19:35 | RAD_ITS ---
STUDY: X-RAY - RIGHT KNEE REASON FOR EXAM: Female, 31 years old. Awoke with portable knee pain. TECHNIQUE: 3 view(s) of the knee. COMPARISON: None. FINDINGS: Normal visualized distal femur. Normal visualized proximal tibia and fibula. Normal proximal tibiofibular articulation. There is no acute fracture, dislocation or destructive osseous pathology. Normal medial femorotibial compartment. Normal lateral femorotibial compartment. Normal patellofemoral articulation. There is no demonstrated joint effusion. The soft tissue structures are unremarkable. RAD/Knee 4 or More Views IMPRESSION: Normal x-ray examination of the right knee. Electronically Signed: Rios Savage DO at 20:16 EDT Reading Location ID and State: [facility] Tel [phone], Service support ,
[2021-07-25] MEDS: Naproxen 250 MG Tablet 500 MG PO (20:05)
== END 2021-07-25 20:07 | disposition home or self-care (01) ==
PROVIDERS: Emergency Provider Emergency Medicine; Visit Provider Emergency Medicine
DX: M25.561 Pain in right knee (principal); F17.210 Nicotine dependence, cigarettes, uncomplicated; E66.9 Obesity, unspecified
CPT/HCPCS: 73564; 99283